=== PATIENT | female | born 1975 | race Native Hawaiian/Other Pacific Islander ===

== ENCOUNTER 2023-01-10 19:31 | Emergency (ER) | payer SELFPAY ==
[~2023-01-10] VITALS: Ht 155 cm; Wt 61.0 kg
[2023-01-10] MEDS ORDERED: NS IV 1000 ML 1,000 ML IV STA ×2 (19:49→20:36)
--- NOTE | 2023-01-10 19:55 | ED Integumentary General ---
General Stated Complaint: BOIL UNDER LT ARM Source: patient, family Exam Limitations: no limitations, language barrier History of Present Illness Date Seen by Provider: Jan 10, 2023 Time Seen by Provider: 19:52 Initial Comments Patient is a 47-year-old female with a history of diabetes who presents ED with abscess to her left axilla. This started 4 days ago. Reports increased size redness swelling and pain. She felt feverish this evening. Denies history of similar symptoms. Denies history of MRSA. Patient significant other spoke [place] and serves as environmental aide. She was febrile and tachycardic. Septic workup was initiated. She denies of any drainage from the abscess. Patient denies chest pain, shortness of breath, cough, nausea, vomiting, diarrhea Allergies and Home Medications Allergies Coded Allergies: No Known Drug Allergies (Unverified , 01/10/23) Patient Home Medication List Home Medication List Reviewed: Yes Metformin HCl (Metformin HCl) 500 Mg Tablet, 500 MG PO BID Prescribed by: CECELIA HILL on 01/10/232225 Sulfamethoxazole/Trimethoprim (Bactrim Ds Tablet) 800 Mg-160 Mg Tablet, 1 EACH PO BID Prescribed by: CECELIA HILL on 01/10/232119 Review of Systems Review of Systems Constitutional: No chills, No diaphoresis; fever, malaise, weakness EENTM: No ear pain, No blurred vision, No double vision Respiratory: No cough, No dyspnea on exertion Cardiovascular: No chest pain Gastrointestinal: No abdominal pain, No diarrhea, No nausea, No vomiting Genitourinary: No decreased output, No discharge Musculoskeletal: No back pain, No joint pain Skin: No change in color, No change in hair/nails All Other Systems Reviewed Negative Unless Noted: Yes Physical Exam Vital Signs Vital Signs - First Documented 01/10/23 01/10/23 19:35 22:27 Temp 38.1 Pulse 112 Resp 16 B/P (MAP) 119/76 (90) Pulse Ox 95 O2 Delivery Room Air Capillary Refill : General Appearance: WD/WN, no apparent distress HEENT: PERRL/EOMI, normal ENT inspection, TMs normal, pharynx normal Neck: non-tender, full range of motion, supple Cardiovascular: no gallop, no JVD, no murmur Respiratory: chest non-tender, lungs clear, normal breath sounds, no respiratory distress, no accessory muscle use Gastrointestinal: normal bowel sounds, non tender, soft, no organomegaly Back: normal inspection, no CVA tenderness Extremities: normal range of motion, non-tender, normal inspection, no pedal edema Neurologic/Psychiatric: lab pack chemist II-XII nml as tested, no motor/sensory deficits, al ert, normal mood/affect, oriented x 3 Skin: normal color, other (Redness and swelling to the left axilla. 4 x 3 cm fluctuant mass with surrounding induration. No active drainage.) Lymphatic: no adenopathy Procedures/Interventions I&D : Blade Size: 11 I & D Procedure: betadine prep Packing/Drain: Idoform 02/13 Progress Anesthetized 1% lidocaine 8 mL. Large abscess to left axilla. Surrounding induration erythema . large amount of purulent drainage. Progress/Results/Core Measures Results/Orders Lab Results Laboratory Tests Test 01/10/23 19:53 01/10/23 22:24 Range/Units White Blood Count 11.2 H 4.3-11.0 10^3/uL Red Blood Count 4.60 3.80-5.11 10^6/uL Hemoglobin 15.0 11.5-16.0 g/dL Hematocrit 40 35-52 % Mean Corpuscular Volume 87 80-99 fL Mean Corpuscular Hemoglobin 33 25-34 pg Mean Corpuscular Hemoglobin Concent 38 H 32-36 g/dL Red Cell Distribution Width 11.5 10.0-14.5 % Platelet Count 254 130-400 10^3/uL Mean Platelet Volume 9.7 9.0-12.2 fL Immature Granulocyte % (Auto) 0 % Neutrophils (%) (Auto) 73 42-75 % Lymphocytes (%) (Auto) 16 12-44 % Monocytes (%) (Auto) 8 0-12 % Eosinophils (%) (Auto) 2 0-10 % Basophils (%) (Auto) 0 0-10 % Neutrophils # (Auto) 8.1 H 1.8-7.8 10^3/uL Lymphocytes # (Auto) 1.8 1.0-4.0 10^3/uL Monocytes # (Auto) 0.9 0.0-1.0 10^3/uL Eosinophils # (Auto) 0.2 0.0-0.3 10^3/uL Basophils # (Auto) 0.1 0.0-0.1 10^3/uL Immature Granulocyte # (Auto) 0.1 0.0-0.1 10^3/uL Prothrombin Time 14.2 12.2-14.7 SEC INR Comment 1.1 0.8-1.4 Activated Partial Thromboplast Time 27 24-35 SEC Sodium Level 130 L 135-145 MMOL/L Potassium Level 4.6 3.6-5.0 MMOL/L Chloride Level 97 L 98-107 MMOL/L Carbon Dioxide Level 19 L 21-32 MMOL/L Anion Gap 14 5-14 MMOL/L Blood Urea Nitrogen 16 7-18 MG/DL Creatinine 1.12 0.60-1.30 MG/DL Estimat Glomerular Filtration Rate 60 BUN/Creatinine Ratio 14 Glucose Level 394 H 70-105 MG/DL Lactic Acid Level 1.29 0.50-2.00 MMOL/L Calcium Level 9.4 8.5-10.1 MG/DL Corrected Calcium 9.7 8.5-10.1 MG/DL Total Bilirubin 1.1 H 0.1-1.0 MG/DL Aspartate Amino Transf (AST/SGOT) 15 5-34 U/L Alanine Aminotransferase (ALT/SGPT) 14 0-55 U/L Alkaline Phosphatase 99 40-136 U/L C-Reactive Protein High Sensitivity 13.04 H 0.00-0.50 MG/DL Total Protein 8.6 H 6.4-8.2 GM/DL Albumin 3.6 3.2-4.5 GM/DL Glucometer 273 H 70-110 MG/DL Micro Results Microbiology 01/10/23 Blood Culture - Preliminary, Resulted My Orders Orders - NORA LYNN Cbc And Automated Diff (01/10/23 19:49) Comprehensive Metabolic Panel (01/10/23 19:49) Blood Culture (01/10/23 19:49) Protime With Inr (01/10/23 19:49) Partial Thromboplastin Time (01/10/23 19:49) Ed Iv/Invasive Line Start (01/10/23 19:49) Vital Signs Adult Sepsis Patie Q15M (01/10/23 19:49) Lactic Acid Analyzer (01/10/23 19:49) Piperacillin/Tazobactam (Piperacillin/Ta (01/10/23 20:00) Hs C Reactive Protein (01/10/23 19:49) Ns Iv 1000 Ml (Ns Iv 1000 Ml) (01/10/23 19:49) Acetaminophen Tablet (Acetaminophen Ta (01/10/23 20:00) Lidocaine 1% Inj 20 Ml (Xylocaine 1% Inj (01/10/23 20:15) Vancomycin Injection (Vancomycin Injecti (01/10/23 20:30) Ns Iv 1000 Ml (Ns Iv 1000 Ml) (01/10/23 20:36) Accucheck Stat ONCE (01/10/23 22:28) Medications Given in ED Vital Signs/I&O 01/10/23 01/10/23 19:35 22:27 Temp 38.1 37.0 Pulse 112 95 Resp 16 16 B/P (MAP) 119/76 (90) 101/65 Pulse Ox 95 O2 Delivery Room Air Departure Communication (PCP) Reviewed previous ER visits, H&P, lab testing. History of diabetes not currently on medication. Has been on metformin in the past. Presents ED with an abscess to her left axilla. Started 4 days ago with increased size redness. On exam she has a large abscess with surrounding induration and cellulitis located to the left axilla. No history of a cyst to this location or history of similar symptoms. She was tachycardic at 112 bpm and febrile. Septic workup was initiated. She started on Zosyn and vancomycin for skin infection. Blood cultures pending. Started on a liter of fluid. CBC showed white blood count 1.2. Chemistry sodium 130, chloride 97 normal anion gap normal kidney function. Blood glucose 394. Normal lactic acid. CRP 13. Incision and drainage of the abscess to the left axilla. Large amount of purulent drainage. Quarter inch out of form packing was placed. Procedure documented in note. Recommend packing removal in 2 to 3 days. May return back to ED for wound check and removal of the packing. She did have some localized redness and swelling but did note improvement of the induration and swelling of the abscess after d rainage. she did receive a second liter of fluid. Blood sugar did improve to 273. She does not appear to be in DKA. Will start patient back on metformin. She states she feels much better at this time. Does not appear septic. Improvement of heart rate and fever. She did receive Tylenol for her fever. Provided general surgery follow-up for the abscess. May need further evaluation. If increased redness swelling and pain recommend returning back to ED. Will discharge with Bactrim. Alternate Tylenol ibuprofen for pain. Discussed diabetic diet. Start on metformin 500 mg twice daily. Impression Primary Impression: Abscess Additional Impression: Hyperglycemia Disposition: HOME, SELF-CARE Condition: Stable Departure-Patient Inst. Decision time for Depature: 21:17 Referrals: DURGA ATKINSON,LOCAL PHYSICIAN (PCP) Primary Care Physician Patient Instructions: Abscess Incision and Drainage Add. Discharge Instructions: Need to remove packing in 2 days. If increased redness or swelling to return back to ED. General surgery outpatient follow-up for further evaluation. Scripts Metformin HCl (Metformin HCl) 500 Mg Tablet 500 MG PO BID, #60 TAB Prov: NORA LYNN 01/10/23 Sulfamethoxazole/Trimethoprim (Bactrim Ds Tablet) 800 Mg-160 Mg Tablet 1 EACH PO BID for 7 Days, #14 TAB Prov: NORA LYNN 01/10/23 NORA LYNN Jan 10, 2023 19:55
[2023-01-10] MEDS ORDERED: PIPERACILLIN/Tazobactam 4.5 GM in NS (IVPB) 100 ML 100 ML IV ONE (20:00)
[2023-01-10] MEDS ORDERED: ACETAMINOPHEN 325 MG TABLET PO ONE (20:00)
[2023-01-10 20:05] LABS: BASOPHILS # (AUTO) 0.1 10^3/uL (0.0-0.1); BASOPHILS % (AUTO) 0 % (0-10); EOSINOPHILS # (AUTO) 0.2 10^3/uL (0.0-0.3); EOSINOPHILS % (AUTO) 2 % (0-10); HEMATOCRIT 40 % (35-52); LYMPHOCYTES # (AUTO) 1.8 10^3/uL (1.0-4.0); LYMPHOCYTES % (AUTO) 16 % (12-44); MEAN CORPUSCULAR HEMOGLOBIN 33 pg (25-34); MEAN CORPUSCULAR HGB CONC 38 g/dL (32-36); MEAN CORPUSCULAR VOLUME 87 fL (80-99); MEAN PLATELET VOLUME 9.7 fL (9.0-12.2); MONOCYTES # (AUTO) 0.9 10^3/uL (0.0-1.0); MONOCYTES % (AUTO) 8 % (0-12); NEUTROPHILS # (AUTO) 8.1 10^3/uL (1.8-7.8); NEUTROPHILS % (AUTO) 73 % (42-75); PLATELET COUNT 254 10^3/uL (130-400); WHITE BLOOD COUNT 11.2 10^3/uL (4.3-11.0)
[2023-01-10 20:14] LABS: INR 1.1 (0.8-1.4); PROTHROMBIN TIME PATIENT 14.2 SEC (12.2-14.7)
[2023-01-10] MEDS ORDERED: LIDOCAINE 1% INJ 20 ML VIAL INJ ONE (20:15)
[2023-01-10] MEDS ORDERED: VANCOMYCIN INJECTION 1,000 MG in NS (IVPB) 250 ML 250 ML IV ONE (20:30)
[2023-01-10 20:32] LABS: ALBUMIN 3.6 GM/DL (3.2-4.5); BILIRUBIN,TOTAL 1.1 MG/DL (0.1-1.0); CALCIUM 9.4 MG/DL (8.5-10.1); CREATININE SERUM 1.12 MG/DL (0.60-1.30); POTASSIUM 4.6 MMOL/L (3.6-5.0); TOTAL PROTEIN 8.6 GM/DL (6.4-8.2)
[2023-01-10] MEDS ORDERED: SULF-221 PO (21:20)
[2023-01-10] MEDS ORDERED: METF-397 PO (22:26)
[2023-01-10 22:27] VITALS: BP 101/65
== END 2023-01-10 22:30 | disposition home or self-care (01) ==
LOC: ER 19:37
DX: L02.412 Cutaneous abscess of left axilla (principal); E11.65 Type 2 diabetes mellitus with hyperglycemia; L03.112 Cellulitis of left axilla
CPT/HCPCS: 10061; 36415; 80053; 82947; 83605; 85025; 85610; 85730; 86141; 87040